=== PATIENT | female | born 1985 | race Caucasian/White ===

== ENCOUNTER 2017-10-25 15:13 | Inpatient (IN) | payer OTHER ==
[~2017-10-25] VITALS: Ht 152.4 cm; Wt 70.3 kg
[~2017-10-25 15:13] MED LIST: MOTRIN 100100 MG/5 M PO; PRENATAL1 TA2 PO
[2017-10-25 16:38] LABS: ABSOLUTE BASOPHIL COUNT 0.1 /CUMM (0.0-0.2); ABSOLUTE EOSINOPHIL COUNT 0 /CUMM (0.0-0.7); ABSOLUTE GRANULOCYTE CT 6.5 /CUMM (1.4-6.5); ABSOLUTE LYMPH COUNT 1.8 /CUMM (1.2-3.4); ABSOLUTE MONOCYTE COUNT 0.6 /CUMM (0.10-0.60); BASOPHIL % 0.6 % (0.0-2.0); EOSINOPHIL % 0.1 % (0-5); GRANULOCYTE % 72.4 % (42.2-75.2); HEMATOCRIT 32.7 % (37-47); MEAN CORPUSCULAR HGB 25.7 PG (27.0-31.0); MEAN CORPUSCULAR HGB CONC 32.8 G/DL (33.0-37.0); MEAN CORPUSCULAR VOLUME 78.5 FL (81.0-99.0); MEAN PLATELET VOLUME 9.3 FL (7.4-10.4); PLATELET COUNT 246 /CUMM (130-400); RBC DISTRIBUTION WIDTH 15.7 % (11.5-14.5); RED BLOOD CELL CT 4.16 /CUMM (4.20-5.40)
--- NOTE | 2017-10-25 18:43 | History & Physical ---
General Information and HPI MD Statement: I have seen and personally examined STEPH BUTLER and documented this H&P. The patient is a 31 year old female at 40 weeks and days gestation who presented with a chief complaint of painful ctx. Source of Information: patient, old records Exam Limitations: no limitations History of Present Illness: The patient is a 31 year old female at 40 weeks and days gestation who presented with a chief complaint of painful ctx. No lof / vb. +FM. AP care uncomplicated. GBS neg. Allergies/Medications Allergies: Coded Allergies: NO KNOWN ALLERGIES (12/23/11) Home Med list Ibuprofen (Motrin 100MG/5ML (Unit Dose)) 100 MG/5 ML ORAL.SUSP 800 MG PO Q6- PRN PRN PAIN SCALE 4-6 PNV95/FERROUS FUMARATE/FA ( Formula Tablet) 28 MG IRON-800 MCG TABLET 1 TAB PO DAILY vitamin support Compliance With Home Meds: GOOD Past History virtualization architect History : 6 Para: 4 Last Menstrual Period: unsure Estimated Delivery Date: 10/25/17 Past virtualization architect History: FT x 4, sab x 1 Past Pregnancies Past Pregnancies: Date of Delivery: May 2013 Gestational Age: 41 weeks Length of Labor: Less than one hour Weight: 7 lbs. 12 oz. Type of Delivery: vaginal Anesthesia: Epidural Place of Delivery: [facility] Medical History Neurological: NONE EENT: NONE Cardiovascular: NONE Respiratory: NONE Gastrointestinal: NONE Hepatic: NONE Renal: NONE Musculoskeletal: NONE Psychiatric: NONE Endocrine: NONE Blood Disorders: NONE Cancer(s): NONE REED CLEANER/Reproductive: NONE Surgical History Pertinent Surgical History: none, N Past Family/Social History Family History Relations & Conditions if any Relation not specified for: *No pertinent family history Psychosocial History Who Do You Live With? self Primary Language: Pashto Living Will? no Exam & Diagnostic Data Last 24 Hrs of Vital Signs/I&O afeb, vss Obstetric Exam Wgt Gained During : 45 lb Pelvimetry: adequate Dilation (cm): 4 Effacement (%): 100 Station: -2 Membranes: intact Fluid: unknown Fundal Height (cm): 40 Multiple Gestation? No Contractions: q3 #1 - FHR Baseline: 130 Category: 1 Estimated Weight: 3600 Presentation: vtx Patient for Induction? No Physical Exam: nad abd soft nt gravid ext nt no edema Labs Blood Type & Rh: O pos Antibody Screen: neg Hct/Hgb & Platelets #1: 12.7/ 37.3, 202 Hct/Hgb & Platelets #2: 10.8/ 33.4, 180 Rubella: imm VDRL #1: neg VDRL #2: neg HbsAg: neg HIV #1: neg HIV #2 neg 1 Hr P Group B Strep: neg Initial Ultrasound: 03/13/17 siup 7+5 +FH Anatomy Ultrasound: 06/04/17 19+1 nl ree Genetic Testing: declined Last 24 Hrs of Labs/Josep: Laboratory Tests 10/25/17 1611: CBC w Diff NO MAN DIFF REQ, RBC 4.16 L, MCV 78.5 L, MCH 25.7 L, RDW 15.7 H, MPV 9.3, Gran % 72.4, Lymphocytes % 20.2 L, Monocytes % 6.7, Eosinophils % 0.1, Basophils % 0.6, Absolute Granulocytes 6.5, Absolute Lymphocytes 1.8, Absolute Monocytes 0.6, Absolute Eosinophils 0, Absolute Basophils 0.1, PUBS MCHC 32.8 L Assessment/Plan Assessment/Plan: 31yo P4 @ 40 wks active labor, intact, gbs neg, and maternal status reassuring -admit -pain mgmt -monitoring -ansvd As Ranked By This Provider Problem List: 1. 2. Term delivered 3. Multiparity, grand, in labor and delivery Core Measures Venous Thromboembolism VTE Risk Factors / No Mechanical VTE Prophylaxis d/t Early Ambulation No VTE Pharm Prophylaxis d/t LowRisk-No Interven Req'd
--- NOTE | 2017-10-25 19:08 | Labor & Delivery Summary ---
Delivery Summary Vaginal Delivery: Vaginal: spontaneous Episiotomy/Lacerations: Episiotomy/Lacerations: none Placenta: Placenta: spontanteous, normal, 3 vessel Anesthesia: block Baby's Weight: 7#15 Apgars - 1 Min: 9 Apgars - 5 Min: 9 Additional Comments: Pt FD / +2 and pushing w/ epidural. COntrolled of live male, apg 9/, wt 7# 15. Head delivered over intact perineum from SONI. Mouth and nose bulb suctioned. Body delivered w/o difficulty. Cord clamped and cut. Infant to RN. 3vc plac del spont intact. Fundus contracted. No lacerations noted. EBL 300cc. Pt tolerated well. Baby to mom.
[2017-10-25 19:09] VITALS: BP 105/60
[2017-10-26 08:54] LABS: ABSOLUTE BASOPHIL COUNT 0 /CUMM (0.0-0.2); ABSOLUTE EOSINOPHIL COUNT 0 /CUMM (0.0-0.7); ABSOLUTE GRANULOCYTE CT 6.5 /CUMM (1.4-6.5); ABSOLUTE LYMPH COUNT 1.7 /CUMM (1.2-3.4); ABSOLUTE MONOCYTE COUNT 0.6 /CUMM (0.10-0.60); BASOPHIL % 0.5 % (0.0-2.0); EOSINOPHIL % 0.3 % (0-5); HEMATOCRIT 30.4 % (37-47); MEAN CORPUSCULAR HGB 25.7 PG (27.0-31.0); MEAN CORPUSCULAR HGB CONC 32.6 G/DL (33.0-37.0); MEAN CORPUSCULAR VOLUME 78.8 FL (81.0-99.0); PLATELET COUNT 195 /CUMM (130-400); RED BLOOD CELL CT 3.85 /CUMM (4.20-5.40); WHITE BLOOD CELL COUNT 8.9 /CUMM (4.8-10.8)
--- NOTE | 2017-10-26 10:07 | PN- Post Delivery/GYN ---
Subjective Subjective: feeling well c/o inner thigh soreness Review of Systems Constitutional: Reports: no symptoms. Denies: chills, fever. EENTM: Denies: blurred vision, double vision, visual changes. Cardiovascular: Denies: chest pain. Respiratory: Denies: cough. Gastrointestinal: Denies: diarrhea, nausea, vomiting. Neurological/Psychological: Denies: anxiety, depressed. Objective Last 24 Hrs of Vital Signs/I&O vss Vital Signs Date Time Temp Pulse Resp B/P B/P Pulse O2 O2 Flow FiO2 Mean Ox Delivery Rate 10/25 1908 105/60 Intake & Output 10/26 1600 10/26 0800 10/26 0000 Intake Total Output Total Balance Patient 155 lb Weight Physical Exam General Appearance Alert, Oriented X3, Cooperative Cardiovascular Regular Rate Lungs Clear to Auscultation Abdomen fundus firm Pelvic (FEMALE) lochia serosanganous Current Medications: Current Medications Sig/Mili Start time Last Medication Dose Route Stop Time Status Admin Docusate Sodium 100 MG BID PRN 10/25 1914 AC PO Ibuprofen 800 MG Q6P PRN 10/265 AC 10/26 PO 0417 Ibuprofen 800 MG Q6P PRN 10/25 1914 CAN PO Oxycodone/ 1 TAB Q3P PRN 10/25 1914 AC Acetaminophen PO Oxytocin 20 UNITS Q5H 10/25 1914 DC Lactated Ringer's 1,000 ML IV 10/26 0014 Oxytocin 10 UNITS .STK-MED ONE 10/25 1649 DC IM 10/25 1650 Senna 374 MG AT BEDTIME NEED.. 10/25 1914 AC PO Last 24 Hrs of Labs/Josep: Laboratory Tests 10/26/17 0835: CBC w Diff NO MAN DIFF REQ, RBC 3.85 L, MCV 78.8 L, MCH 25.7 L, RDW 16.0 H, MPV 9.0, Gran % 73.0, Lymphocytes % 19.6 L, Monocytes % 6.6, Eosinophils % 0.3, Basophils % 0.5, Absolute Granulocytes 6.5, Absolute Lymphocytes 1.7, Absolute Monocytes 0.6, Absolute Eosinophils 0, Absolute Basophils 0, PUBS MCHC 32.6 L 10/25/17 1611: CBC w Diff NO MAN DIFF REQ, RBC 4.16 L, MCV 78.5 L, MCH 25.7 L, RDW 15.7 H, MPV 9.3, Gran % 72.4, Lymphocytes % 20.2 L, Monocytes % 6.7, Eosinophils % 0.1, Basophils % 0.6, Absolute Granulocytes 6.5, Absolute Lymphocytes 1.8, Absolute Monocytes 0.6, Absolute Eosinophils 0, Absolute Basophils 0.1, PUBS MCHC 32.8 L 10/25/17 1600: Urine Color YEL, Urine Clarity CLEAR, Urine pH 7.0, Ur Specific [place] <= 1.005 , Urine Protein NEG, Urine Ketones NEG, Urine Nitrite NEG, Urine Bilirubin NEG, Urine Urobilinogen 0.2, Ur Leukocyte Esterase NEG, Ur Microscopic EXAM NOT REQUIRED, Urine Hemoglobin NEG, Urine Glucose NEG Microbiology 10/25 1730 URINE ROUT: Urine Culture - RES Assessment/Plan Assessment/Plan PPD #1 vss afebrile plan d/c in am Problem List: 1. Term delivered Attending MD Review Statement Attending Statement Attending MD Statement: examined this patient, discussed with family, discussed with nursing
--- NOTE | 2017-10-27 08:23 | PN- Post Delivery/GYN ---
Subjective Subjective: feeling well Review of Systems Constitutional: Reports: no symptoms. Denies: chills, fever. EENTM: Denies: blurred vision, double vision, visual changes. Cardiovascular: Denies: edema. Respiratory: Denies: cough. Gastrointestinal: Denies: diarrhea, nausea, vomiting. Neurological/Psychological: Denies: anxiety, depressed. Objective Last 24 Hrs of Vital Signs/I&O vss Physical Exam General Appearance Alert, Oriented X3, Cooperative, No Acute Distress Cardiovascular Regular Rate Lungs Clear to Auscultation Abdomen Soft, fundus firm Neurological Normal Gait, Normal Speech, Strength at 5/5 X4 Ext Extremities No Edema Pelvic (FEMALE) lochia serosanganous Current Medications: Current Medications Sig/Mili Start time Last Medication Dose Route Stop Time Status Admin Docusate Sodium 100 MG BID PRN 10/25 1914 AC PO Ibuprofen 800 MG Q6P PRN 10/265 AC 10/26 PO 2328 Oxycodone/ 1 TAB Q3P PRN 10/25 1914 AC Acetaminophen PO Senna 374 MG AT BEDTIME NEED.. 10/25 1914 AC PO Last 24 Hrs of Labs/Josep: Laboratory Tests 10/26/17 0835: CBC w Diff NO MAN DIFF REQ, RBC 3.85 L, MCV 78.8 L, MCH 25.7 L, RDW 16.0 H, MPV 9.0, Gran % 73.0, Lymphocytes % 19.6 L, Monocytes % 6.6, Eosinophils % 0.3, Basophils % 0.5, Absolute Granulocytes 6.5, Absolute Lymphocytes 1.7, Absolute Monocytes 0.6, Absolute Eosinophils 0, Absolute Basophils 0, PUBS MCHC 32.6 L Assessment/Plan Assessment/Plan ppd #2 vss afebrile plan d/c home
== END 2017-10-27 10:15 | DRG 775 ==
LOC: CBCO 15:13 → GNO 16:01
PROVIDERS: Obstetrics & Gynecology
PROC: 10E0XZZ Delivery of Products of Conception, External Approach (ICD-10-PCS; principal; 2017-10-25)
DX: O80 Encounter for full-term uncomplicated delivery (principal); Z37.0 Single live birth; Z3A.40 40 weeks gestation of pregnancy
CPT/HCPCS: GNOS; 81003; 86902; 86920; 86922; 87086; J7120